=== PATIENT | male | born 1985 | race Caucasian/White ===

== ENCOUNTER 2018-07-10 14:19 | Emergency (ER) | payer OTHER ==
[~2018-07-10] VITALS: Ht 170.2 cm; Wt 74.8 kg
--- OUTSIDE RECORDS SUMMARY | ~2018-07-10 | XMS | Clinical Summary ---
Demographics + + + | Address | NEED ADDRESS | | | [place] [address] | + + + | Preferred Language | Unknown | + + + | Marital Status | Single | + + + | Hinduism Affiliation | Unknown | + + + | Race | Unknown | + + + | Ethnic Group | Unknown | + + + Author + + + | Author | [facility] | | | claire Figueroa | + + + | Organization | [facility] | | | and [place] | + + + | Address | Unknown | + + + | Phone | Unavailable | + + + Support + + + + + | Name | Relationship | Address | Phone | + + + + + | Stephania Benedict | AMANDA | [address] | | | | | [place] | | | | | [address] | | + + + + + Care Team Providers + +------+ + | Care Evaluation Engineer Name | Role | Phone | + +------+ + | No, Unknownpcp | PP | | + +------+ + Allergies Not on File Current Medications Not on file Active Problems Not on file Social History + +-------+ +--------+------+ | Tobacco Use | Types | Packs/Day | Years | Date | | | | | Used | | + +-------+ +--------+------+ | Never Assessed | | | | | + +-------+ +--------+------+ + + + | Sex Assigned at | Date Recorded | | | | + + + | Not on file | | + + + Plan of Treatment + + + + + | Health Maintenance | Due Date | Last Done | Comments | + + + + + | Vaccine: | | | | | Dtap/Tdap/Td (1 - | 5 | | | | Tdap) | | | | + + + + + | Vaccine: Influenza | | | | | (#1) | 8 | | | + + + + + Results Not on filefrom Last 3 Months"
--- OUTSIDE RECORDS SUMMARY | ~2018-07-10 | XMS | Clinical Summary ---
Demographics + + + | Address | NEED ADDRESS | | | [place] [address] | + + + | Preferred Language | Unknown | + + + | Marital Status | Single | + + + | Congregation Affiliation | Unknown | + + + | Race | Unknown | + + + | Ethnic Group | Unknown | + + + Author + + + | Author | [facility] | | | claire Figueroa | + + + | Organization | [facility] | | | and [place] [...] [place] | | | | | [id number] | | + + + + + Care Team Providers + +------+ + | Care Retirement Assistant Name | Role | Phone | + [...]
[~2018-07-10 14:19] MED LIST: ACETAMINOPHEN-1 EAC1 PO; BENADRYL25 MG PO; DSS100 MG PO; IBUPROFEN200 MG PO; PREDNISONE20 MG PO; TRAMADOL HCL50 MG PO; TUMS ULTRA400 MG PO; TYLENOL325 MG PO
== END 2018-07-10 16:08 | disposition home or self-care (01) ==
LOC: ED 14:19
DX: T65.91XA Toxic effect of unspecified substance, accidental (unintentional), initial encounter (principal); H10.211 Acute toxic conjunctivitis, right eye; L30.9 Dermatitis, unspecified
CPT/HCPCS: 99283

== ENCOUNTER 2021-09-05 13:41 | Emergency (ER) | payer OTHER ==
[~2021-09-05] VITALS: Ht 170.2 cm; Wt 77.1 kg
[2021-09-05] MEDS ORDERED: FLUOXETINE HCL20 MG PO (13:59)
[2021-09-05] MEDS ORDERED: DEXTROAMP-AMPHE30 MG PO (14:00)
[2021-09-05] MEDS ORDERED: BUPRENORPHINE-1 EACH SL (14:00)
[2021-09-05] MEDS ORDERED: BLEPH-105 ML OPTH (15:35)
--- OUTSIDE RECORDS SUMMARY | 2021-09-05 16:00 | XMS ---
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 Liya has no Care Guidelines for this patient. [place] VISIT COUNT (12 MO.) 1 [facility] [place] TOTAL 1 NOTE: Visits indicate total known visits. ED/UCC VISIT TRACKING (12 MO.) 09/05/2021 13:41 [facility] [place] TYPE: Emergency COMPLAINT: - EYE PAIN INPATIENT VISIT TRACKING (12 MO.) No inpatient visits to display in this time frame [email or web address]
== END 2021-09-05 15:43 | disposition home or self-care (01) ==
LOC: ED 13:41
DX: T15.91XA Foreign body on external eye, part unspecified, right eye, initial encounter (principal); Z79.899 Other long term (current) drug therapy
CPT/HCPCS: 99283